=== PATIENT | female | born 1990 | race African-American/Black ===

== ENCOUNTER 2016-11-24 12:01 | Emergency (ER) | payer OTHER ==
[~2016-11-24] VITALS: Ht 167.6 cm; Wt 66.7 kg
[~2016-11-24 12:01] MED LIST: INSU100I17 SQ; METF500T4 PO; NPH,100V4 SQ; PROC10TA57 PO
[2016-11-24 12:20] VITALS: BP 135/74
--- NOTE | 2016-11-24 13:19 | PHYS DOC ---
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 Patient was at work earlier today and was advised to come and get evaluated and she was having a "slight headache" earlier today. Patient states this was around 9 AM. She states she is actually headache free at this time. 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 She states that this afternoon became concerned and wanted to come into the scene she has a history of having a SCREEN REPA[employer]USHER shunt. Patient states that she has has no complaints at this time. She states that she follows the guidelines provided to her by the neurosurgeon at [facility] and sees no other reason to be here. She states she is requesting a work note to clear to return to work. Review of Systems Review of Systems Constitutional: Denies fever or chills [] Eyes: Denies change in visual acuity, redness, or eye pain [] HENT: Denies nasal congestion or sore throat [] Respiratory: Denies cough or shortness of breath [] Cardiovascular: No additional information not addressed in HPI [] GI: Denies abdominal pain, nausea, vomiting, bloody stools or diarrhea [] : Denies dysuria or hematuria [] Musculoskeletal: Denies back pain or joint pain [] Integument: Denies rash or skin lesions [] Neurologic: Denies headache, focal weakness or sensory changes [] Endocrine: Denies polyuria or polydipsia [] Allergies Allergies Allergies Coded Allergies Type Severity Reaction Last Updated Verified No Known Drug Allergies 01/06/15 No Physical Exam Physical Exam Constitutional: Well developed, well nourished, no acute distress, non-toxic appearance. [] HENT: Normocephalic, atraumatic, bilateral external ears normal, oropharynx moist, no oral exudates, nose normal. [] Eyes: PERRLA, EOMI, conjunctiva normal, no discharge. Direct funduscopic exam shows a homogenous fundal background with normal vascular arcade without AV nicking, venous pulsations. Optic cup and disc have clear, distinct margins. Neck: Normal range of motion, no tenderness, supple, no stridor. [] Cardiovascular:Heart rate regular rhythm, no murmur [] Lungs & Thorax: Bilateral breath sounds clear to auscultation [] Abdomen: Bowel sounds normal, soft, no tenderness, no masses, no pulsatile masses. [] Skin: Warm, dry, no erythema, no rash. [] Back: No tenderness, no CVA tenderness. [] Extremities: No tenderness, no cyanosis, no clubbing, ROM intact, no edema. [] Neurologic: Alert and oriented X 3, cranial nerves II through XII are intact. Patient is able perform rapid alternating movement and [id number] without difficulty. Romberg is negative for pronator drift. Patient ambulates with a steady, unaided gait. Psychologic: Affect normal, judgement normal, mood normal. [] Current Patient Data Vital Signs Vital Signs Date Time Temp Pulse Resp B/P Pulse Ox O2 Delivery O2 Flow Rate FiO2 11/24/16 12:20 98.1 97 16 99 Room Air 98.1 EKG EKG [] Radiology/Procedures Radiology/Procedures [] Course & Med Decision Making Course & Med Decision Making Pertinent Labs and Imaging studies reviewed. (See chart for details) [] Dragon Disclaimer Dragon Disclaimer This electronic medical record was generated, in whole or in part, using a voice recognition dictation system. Departure Departure Impression: Primary Impression: Normal exam Disposition: 01 HOME, SELF-CARE Condition: GOOD Referrals: NO PCP (PCP) Patient Instructions: Exam, Normal, Adult Additional Instructions: 1. You're cleared to return to work and other activities. 2. Contact your neurosurgeon if you have any concerns about the functionality of your [employer] shunt. HORACIO ROSALES Nov 24, 2016 13:18
== END 2016-11-24 13:22 | disposition home or self-care (01) ==
LOC: ER 12:01
DX: Z00.00 Encounter for general adult medical examination without abnormal findings (principal); R51 Headache; E11.9 Type 2 diabetes mellitus without complications
CPT/HCPCS: 99281

== ENCOUNTER 2018-03-01 15:30 | Emergency (ER) | payer OTHER ==
[2018-03-01 16:14] LABS: POC GLUCOSE 587 mg/dL (70-99)
[2018-03-01] MEDS: NEOMY/BACITR/POLYMYXIN OINT PACKET. TP (16:15)
[2018-03-01] MEDS: LIDOCAINE WITH 8.4% SOD BICARB 3 ML DISP.SYRIN. INJ (16:15)
[2018-03-01 17:29] LABS: ADD MAN DIFF? NO
[2018-03-01 17:33] LABS: BASO % 0 % (0-3); EOS # 0.1 x10^3/uL (0.0-0.7); EOS % 1 % (0-3); HEMATOCRIT 37.4 % (36.0-47.0); HEMOGLOBIN 12.9 g/dL (12.0-15.5); LYMPH # 3.2 x10^3/uL (1.0-4.8); LYMPH % 33 % (24-48); MEAN CORPUSCULAR HEMOGLOBIN 29 pg (25-35); MEAN CORPUSCULAR HGB CONC 34 g/dL (31-37); MEAN CORPUSCULAR VOLUME 85 fL (79-100); MONO # 0.8 x10^3/uL (0.0-1.1); MONO % 8 % (0-9); NEUT # 5.6 x10^3uL (1.8-7.7); NEUT % 58 % (31-73); PLATELET COUNT 223 x10^3/uL (140-400); RED BLOOD COUNT 4.39 x10^6/uL (3.50-5.40); RED CELL DISTRIBUTION WIDTH 13.7 % (11.5-14.5); WHITE BLOOD COUNT 9.7 x10^3/uL (4.0-11.0)
[2018-03-01 17:42] LABS: ANION GAP 9 (6-14); BLOOD UREA NITROGEN 15 mg/dL (7-20); BUN/CREATININE RATIO 17 (6-20); CALCIUM 8.9 mg/dL (8.5-10.1); CARBON DIOXIDE 23 mmol/L (21-32); CHLORIDE 98 mmol/L (98-107); CREATININE 0.9 mg/dL (0.6-1.0); GFR 92.3; GLUCOSE 495 mg/dL (70-99); POTASSIUM 3.8 mmol/L (3.5-5.1); SODIUM 130 mmol/L (136-145)
[2018-03-01 17:47] LABS: ALBUMIN 3.3 g/dL (3.4-5.0); ALBUMIN/GLOBULIN RATIO 0.9 (1.0-1.7); ALK PHOS 83 U/L (46-116); ALT (SGPT) 14 U/L (14-59); AST (SGOT) 10 U/L (15-37); TOTAL BILIRUBIN 0.3 mg/dL (0.2-1.0)
[2018-03-01] MEDS: HYDROcodone/APAP 5/325MG 1 TAB TABLET PO (17:47)
[2018-03-01] MEDS: IV NORMAL SALINE 1000ML BAG 1,000 ML IV ×2 (17:47→18:15)
[2018-03-01 17:49] LABS: ACETONE NEG (NEG)
[2018-03-01 17:56] LABS: BILIRUBIN,URINE NEGATIVE (NEG); CLARITY,URINE CLEAR; COLOR,URINE YELLOW; GLUCOSE,URINE >=1000 mg/dL (NEG); NITRITE,URINE NEGATIVE (NEG); PROTEIN,URINE NEGATIVE (NEG-TRACE); UROBILINOGEN,URINE 0.2 mg/dL (0.2 mg/dL)
[2018-03-01] MEDS: INSULIN REGULAR 100 UNIT/ML 3ML VIAL. IV (17:58)
[2018-03-01] MEDS ORDERED: INSULIN REGULAR 100 UNIT/ML 3ML VIAL. IV (18:00)
[2018-03-01 18:02] LABS: BACTERIA,URINE 0 /HPF (0-FEW); RBC,URINE 0 /HPF (0-2); WBC,URINE RARE /HPF (0-4)
[2018-03-01 18:03] LABS: SQUAMOUS EPITHELIAL CELL,UR FEW /LPF; YEAST,URINE PRESENT /HPF
[2018-03-01 18:42] LABS: POC GLUCOSE 207 mg/dL (70-99)
== END 2018-03-01 20:01 | disposition home or self-care (01) ==
LOC: ER 20:01
DX: L03.012 Cellulitis of left finger (principal); F17.200 Nicotine dependence, unspecified, uncomplicated; E11.65 Type 2 diabetes mellitus with hyperglycemia
CPT/HCPCS: 10060; 36415; 80053; 81001; 82010; 82962; 85025; 87071; 87075; 96374; 99284-25; J1815; J7030

== ENCOUNTER 2018-05-11 12:03 | Emergency (ER) | payer OTHER ==
[~2018-05-11] VITALS: Ht 162.6 cm; Wt 68.0 kg
[~2018-05-11 12:03] MED LIST changes: +CLIN150C14 PO; +METF500T16 PO; -METF500T4 PO; -NPH,100V4 SQ; +NPH,100V5 SQ
[2018-05-11] MEDS ORDERED: AZITHROMYCIN 250 MG TABLET. PO ONE (13:30)
[2018-05-11] MEDS ORDERED: cefTRIAXone IM 250 MG VIAL IM ONE (13:30)
[2018-05-11] MEDS ORDERED: metroNIDAZOLE 500 MG TABLET PO ONE (13:30)
--- NOTE | 2018-05-11 13:39 | PHYS DOC ---
Past Medical History Past Medical History: Diabetes-Type II Additional Past Medical Histor: hydrocephalus Past Surgical History: Additional Past Surgical Histo: CEREBRAL SHUNT Alcohol Use: Occasionally Drug Use: None Adult General Chief Complaint Chief Complaint: ABDOMINAL PAIN HPI HPI Patient is a 28 year old female with a history of diabetes presents to the ED complaining of lower abdominal pain and dysuria 3 days. Patient states her sexual partner was just treated for STDs. Unsure what he was treated for. Describes the pain as burning. Rates the pain as 7 out of 10. 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 Patient states that she is not having any vaginal discharge or bleeding. History of similar symptoms in the past. Denies diarrhea, chest pain, shortness of breath, fever, chills, nausea/vomiting or dizziness. Review of Systems Review of Systems Constitutional: Denies fever or chills [] Eyes: Denies change in visual acuity, redness, or eye pain [] HENT: Denies nasal congestion or sore throat [] Respiratory: Denies cough or shortness of breath [] Cardiovascular: No additional information not addressed in HPI [] GI: Complains of abdominal pain. Denies nausea, vomiting, bloody stools or diarrhea [] : Complains of dysuria. Denies hematuria [] Musculoskeletal: Denies back pain or joint pain [] Integument: Denies rash or skin lesions [] Neurologic: Denies headache, focal weakness or sensory changes [] All other systems were reviewed and found to be within normal limits, except as documented in this note. Current Medications Current Medications Current Medications Medications (Trade) Dose Ordered Sig/Caren Start Time Stop Time Status Last Admin Dose Admin Azithromycin (Zithromax) 1,000 mg 1X ONCE 05/11/18 13:30 05/11/18 13:36 DC 05/11/18 13:30 1,000 MG Ceftriaxone Sodium (Rocephin Im) 250 mg 1X ONCE 05/11/18 13:30 05/11/18 13:36 DC 05/11/18 13:30 250 MG Metronidazole (Flagyl) 2,000 mg 1X ONCE 05/11/18 13:30 05/11/18 13:36 DC 05/11/18 13:30 2,000 MG Allergies Allergies Allergies Coded Allergies Type Severity Reaction Last Updated Verified No Known Drug Allergies 01/06/15 No Physical Exam Physical Exam Constitutional: Well developed, well nourished, no acute distress, non-toxic appearance. [] HENT: Normocephalic, atraumatic Eyes: PERRLA, EOMI, conjunctiva normal, no discharge. [] Neck: Normal range of motion, no tenderness, supple, no stridor. [] Cardiovascular:Heart rate regular rhythm, no murmur [] Lungs & Thorax: Bilateral breath sounds clear to auscultation [] Abdomen: Bowel sounds normal, soft, no tenderness, no masses, no pulsatile masses. [] : Refused Skin: Warm, dry, no erythema, no rash. [] Back: No tenderness, no CVA tenderness. [] Extremities: No tenderness, no cyanosis, no clubbing, ROM intact, no edema. [] Neurologic: Alert and oriented X 3, normal motor function, normal sensory function, no focal deficits noted. [] Psychologic: Affect normal, judgement normal, mood normal. [] Current Patient Data Vital Signs Vital Signs Date Time Temp Pulse Resp B/P (MAP) Pulse Ox O2 Delivery O2 Flow Rate FiO2 05/11/18 13:58 98.3 99 17 127/66 (86) 100 Room Air 98.3 Lab Values Laboratory Tests Test 05/11/18 13:13 05/11/18 13:30 Urine Collection Type Void Urine Color Yellow Urine Clarity Clear Urine pH 6.0 Urine Specific [place] >=1.030 Urine Protein Negative mg/dL (NEG-TRACE) Urine Glucose (UA) >=1000 mg/dL (NEG) Urine Ketones (Stick) Negative mg/dL (NEG) Urine Blood Large (NEG) Urine Nitrite Negative (NEG) Urine Bilirubin Negative (NEG) Urine Urobilinogen Dipstick 0.2 mg/dL (0.2 mg/dL) Urine Leukocyte Esterase Negative (NEG) Urine RBC >40 /HPF (0-2) Urine WBC Rare /HPF (0-4) Urine Squamous Epithelial Cells Few /LPF Urine Bacteria Few /HPF (0-FEW) POC Urine HCG, Qualitative Hcg negative (Negative) EKG EKG [] Radiology/Procedures Radiology/Procedures [] Course & Med Decision Making Course & Med Decision Making Pertinent Labs and Imaging studies reviewed. (See chart for details) []Patient refused pelvic exam, will check urine for with GC PCR test. Patient well-appearing. Patient treated with Rocephin, azithromycin and Flagyl. Cultures pending. Discussed symptomatic treatment, follow-up, safe sex practice and reasons to return to the ED. Patient understands and agrees with plan. Dragon Disclaimer Dragon Disclaimer This electronic medical record was generated, in whole or in part, using a voice recognition dictation system. Departure Departure Impression: Primary Impression: STD exposure Disposition: HOME, SELF-CARE Condition: IMPROVED Referrals: NO PCP (PCP) RICHY PEREZ MD Patient Instructions: Sexually Transmitted Disease, [id number] TODD BOO May 11, 2018 13:39
[2018-05-11 13:49] LABS: BILIRUBIN,URINE NEGATIVE (NEG); CLARITY,URINE CLEAR; COLOR,URINE YELLOW; NITRITE,URINE NEGATIVE (NEG); PROTEIN,URINE NEGATIVE (NEG-TRACE); UROBILINOGEN,URINE 0.2 mg/dL (0.2 mg/dL)
[2018-05-11 13:58] VITALS: BP 127/66
[2018-05-11 14:08] LABS: BACTERIA,URINE FEW /HPF (0-FEW); RBC,URINE >40 /HPF (0-2); SQUAMOUS EPITHELIAL CELL,UR FEW /LPF; WBC,URINE RARE /HPF (0-4)
== END 2018-05-11 15:05 | disposition home or self-care (01) ==
LOC: ER 12:03
DX: Z20.2 Contact with and (suspected) exposure to infections with a predominantly sexual mode of transmission (principal); R10.30 Lower abdominal pain, unspecified; R30.0 Dysuria; E11.9 Type 2 diabetes mellitus without complications
CPT/HCPCS: 81001; 81025; 87491; 87591; 96372; 99284; J0696; Q0144